=== PATIENT | female | born 2000 | race Hispanic/Latino ===

== ENCOUNTER 2024-09-29 15:15 | Outpatient (CLI) | payer OTHER | END 2024-09-29 15:16 | disposition home or self-care (01) | LOC: CSHULT 15:15 | PROVIDERS: ATTEND Family Medicine | DX: Z34.02 Encounter for supervision of normal first pregnancy, second trimester (principal); Z3A.21 21 weeks gestation of pregnancy | CPT/HCPCS: 76805 ==

== ENCOUNTER 2025-02-04 17:46 | Inpatient (IN) | payer MEDICAID, OTHER ==
[2025-02-04] MEDS ORDERED: hydrALAZINE 20 MG/ML VIAL SLOW IVP PRN ×2 (19:34→19:35)
[2025-02-04] MEDS ORDERED: Lidocaine 1% (PF) 30 ML VIAL SC PRN ×2 (19:34→19:35)
[2025-02-04] MEDS ORDERED: Ondansetron PF 4 MG/2 ML Vial IVP PRN ×2 (19:34→19:35)
[2025-02-04] MEDS ORDERED: Methylergonovine 0.2 MG/ML VIAL IM PRN (19:35)
[2025-02-04] MEDS ORDERED: Diphenoxylate HCl/Atropine Tablet PO PRN (19:35)
[2025-02-04] MEDS ORDERED: Acetaminophen 500 MG TAB PO PRN (19:35)
[2025-02-04] MEDS ORDERED: Carboprost 250 MCG/ML AMP IM PRN (19:35)
[2025-02-04] MEDS ORDERED: HYDROcodone/Acetaminophen 5/325 mg Tablet PO PRN (19:35)
[2025-02-04] MEDS ORDERED: Tranexamic Acid 1,000 MG/10 ML VIAL IVP PRN (19:35)
[2025-02-04] MEDS ORDERED: Ibuprofen 800 MG TAB PO PRN (19:35)
[2025-02-04] MEDS ORDERED: Oxytocin 30 units/NS 500 ML 500 ML IV SCH ×3 (19:45)
[2025-02-04 19:49] LABS: Hematocrit 34.9 % (34.9-44.5); Hemoglobin 11.6 g/dL (12.0-15.5); Mean Corpuscular Hemoglobin 28.8 pg (27.0-33.0); Mean Corpuscular Volume 86.6 fL (81.6-98.3); Platelet Count 237 10x3/uL (150-450); Red Blood Cell (RBC) Count 4.03 10x6/uL (3.90-5.03); White Blood Cell (WBC) Count 6.93 10x3/uL (3.5-10.5)
[2025-02-04 19:52] VITALS: BMI 33.3
[2025-02-04 20:13] LABS: Syphilis Antibody Index 0.10 S/CO (<1.00 Non-Reactive)
[2025-02-04 20:14] LABS: Hep B Surf Ag - L&D Non-Reactive S/CO (NonReactive)
[2025-02-05] MEDS ORDERED: Ondansetron PF 4 MG/2 ML Vial IVP PRN ×2 (02:30→07:41)
[2025-02-05] MEDS ORDERED: Communication Order-Pharmacy FS SCH (02:30)
[2025-02-05] MEDS ORDERED: fentaNYL 2 mcg/Ropivacaine 0.2% Epidural 100 ML CADD EPIDURAL SCH (02:30)
[2025-02-05] MEDS ORDERED: diphenhydrAMINE 50 MG/ML VIAL IVP PRN (02:30)
[2025-02-05] MEDS ORDERED: Acetaminophen 325 MG TAB PO PRN (02:30)
[2025-02-05] MEDS ORDERED: Bisacodyl 10 MG SUPP PR PRN (07:41)
[2025-02-05] MEDS ORDERED: Benzocaine-Menthol 82.5 ML CAN TOP PRN (07:41)
[2025-02-05] MEDS ORDERED: HYDROcodone/Acetaminophen 5/325 mg Tablet PO PRN (07:41)
[2025-02-05] MEDS ORDERED: diphenhydrAMINE 25 MG CAP PO PRN (07:41)
[2025-02-05] MEDS ORDERED: hydrALAZINE 20 MG/ML VIAL SLOW IVP PRN (07:41)
[2025-02-05] MEDS ORDERED: Milk Of Magnesia 30 ML UDCUP PO PRN (07:41)
[2025-02-05] MEDS ORDERED: Lanolin Ointment 7 GM TUBE TOP PRN (07:41)
[2025-02-05] MEDS: Ibuprofen 800 MG TAB PO SCH (08:51)
[2025-02-05] MEDS: Ferrous Sulfate 325 MG TAB PO SCH (13:47)
[2025-02-05] MEDS: fentaNYL/Ropivacaine Epidural 100 ML ONE (13:47)
[2025-02-06 15:46] VITALS: BP 120/58; TEMP 98.2
== END 2025-02-06 17:15 | disposition home or self-care (01) | DRG 807 ==
LOC: CSHLD 17:46 → CSHPP 02-05 13:37
PROVIDERS: ADMIT Family Medicine; ATTEND Family Medicine
PROC: 0KQM0ZZ Repair Perineum Muscle, Open Approach (ICD-10-PCS; principal; 2025-02-05)
PROC: 10E0XZZ Delivery of Products of Conception, External Approach (ICD-10-PCS; 2025-02-05)
PROC: 3E0DXGC Introduction of Other Therapeutic Substance into Mouth and Pharynx, External Approach (ICD-10-PCS; 2025-02-05)
DX: O24.420 Gestational diabetes mellitus in childbirth, diet controlled (principal); O70.1 Second degree perineal laceration during delivery; Z37.0 Single live birth; Z3A.39 39 weeks gestation of pregnancy; Z79.899 Other long term (current) drug therapy; Z79.82 Long term (current) use of aspirin
CPT/HCPCS: 36415; 36416; 51702; 85027; 86780; 86850; 86900; 86901; 87340